=== PATIENT | female | born 1990 | race Caucasian/White ===

== ENCOUNTER 2019-03-06 02:57 | Emergency (ER) | payer MEDICAID ==
[~2019-03-06] VITALS: Ht 162.6 cm; Wt 114.0 kg
[2019-03-06 03:26] VITALS: BP 118/81
[2019-03-06] MEDS ORDERED: IBUPROFEN 600MG TABLET PO ONE (05:00)
== END 2019-03-06 05:04 | disposition left against medical advice (07) ==
LOC: ER 02:57
DX: S60.222A Contusion of left hand, initial encounter (principal); W18.39XA Other fall on same level, initial encounter; Y93.89 Activity, other specified; Y92.89 Other specified places as the place of occurrence of the external cause; Y99.8 Other external cause status; I10 Essential (primary) hypertension; Z90.49 Acquired absence of other specified parts of digestive tract; Z98.890 Other specified postprocedural states; Z91.018 Allergy to other foods
CPT/HCPCS: 99281